=== PATIENT | male | born 1950 | race Caucasian/White ===

== ENCOUNTER 2017-09-04 13:13 | Emergency (ER) | payer OTHER ==
[~2017-09-04] VITALS: Ht 175.3 cm; Wt 64.4 kg
[~2017-09-04 13:13] MED LIST: AMLODIPINE BES2.5 M1 PO; ATORVASTATIN CA40 M1 PO; ATORVASTATIN CA40 MG PO; BUFFERIN LOW DO81 MG PO; FINASTERIDE5 M1 PO; GLUCOPHAGE500 MG PO; IRBESARTAN300 M1 PO; JANUVIA100 M1 PO; LORAZEPAM1 M1 PO; OMEPRAZOLE20 M2 PO; PRINIVIL 5MG5 MG PO; RAPAFLO8 M1 PO; ULTRAM(MONOGRAP50 MG PO; ZOFRAN ODT4 M1 SL
--- NOTE | 2017-09-04 15:03 | ED AMS/SEIZURE/WEAK/DIZZY ---
History of Present Illness General Chief Complaint: General Adult Stated Complaint: DIZZINESS SINCE A FEW DAYS BS 289 Source: patient Exam Limitations: no limitations Vital Signs & Intake/Output Vital Signs & Intake/Output Vital Signs Date Time Temp Pulse Resp B/P B/P Pulse O2 O2 Flow FiO2 Mean Ox Delivery Rate 09/04 1622 62 18 115/77 97 Room Air 09/04 1349 97.0 82 18 112/58 98 Room Air Room Air Allergies Coded Allergies: metformin (Intermediate, DIARRHEA 09/04/17) Reconcile Medications Amlodipine Besylate 5 MG TABLET 1 TAB PO DAILY HEART (Reported) Aspirin (Aspirin*) 81 MG TAB.CHEW 1 TAB PO DAILY HEART HEALTH (Reported) Atorvastatin Calcium 40 MG TABLET 1 TAB PO DAILY CHOLESTEROL (Reported) Bupropion HCl (Bupropion XL) 150 MG TAB.ER.24H 1 TAB PO QAM MENTAL HEALTH ( Reported) Finasteride 5 MG TABLET 1 TAB PO DAILY PROSTATE (Reported) Irbesartan 300 MG TABLET 1 TAB PO DAILY BP (Reported) Omeprazole 20 MG CAPSULE.DR 1 CAP PO DAILY GI (Reported) Silodosin (Rapaflo) 8 MG CAPSULE 1 CAP PO DAILY PROSTATE (Reported) Sitagliptin Phosphate (Januvia) 100 MG TABLET 1 TAB PO DAILY DM (Reported) Triage Note: PT TO ED WITH WITH C/O DIZZINESS, LIGHTHEADED, TIRED FOR OVER A WEEK. PT ALSO STATING "MY BLOOD SUGARS ARE USUSALLY 125, AND IT HAS BEEN IN THE 200'S ALL WEEK, THIS MORNING IT WAS 297, AND IT'S NEVER BEEN THIS HIGH". PT HAS RECENTLY LOST 19 POUNDS, HAS BEEN WORKING OUT WALKING DAILY. NON-SMOKER, HX OF ETOH, CLEAN FOR MONTHS AND DOING WELL ON WELLBUTRIN PER FAMILY. HX DIABETIC, HTN, CHOLESTEROL. PT IS AWAKE,ALERT,ORIENTED, DENIES CHEST PAIN, "FEELS LIKE SHOULDERS ARE TIGHT AT TIMES". Triage Nurses Notes Reviewed? yes HPI: Patient presents for evaluation of worsening dizziness over the past 2 weeks. Patient states that today he felt extremely dizzy and off balance while taking his usual walk. He states in addition his fingerstick blood glucose level has been running in the upper 200s. He spoke with his primary care physician today and was told to go to the emergency department. In addition to the above he has had urinary frequency fatigue and episodes of chest pain when he "exerciseS". Past History Travel History Traveled to [place] past 21 day No Medical History Any Pertinent Medical History? see below for history Neurological: dizziness EENT: otitis media Cardiovascular: hypertension, HIGH CHOLESTEROL Respiratory: NONE Gastrointestinal: NONE Renal: NONE Musculoskeletal: NONE Psychiatric: alcohol dependence Endocrine: diabetes Blood Disorders: NONE Cancer(s): NONE PRECIPITATE WASHER/Reproductive: NONE History of MRSA: No History of VRE: No History of CDIFF: No Surgical History Surgical History: N Psychosocial History Who do you live with Spouse Services at Home None What is your primary language Argentine Tobacco Use: Never used ETOH Use: alcoholic, CLEAN MONTHS Illicit Drug Use: denies illicit drug use Family History Family History, If Any: FATHER CVA SISTER FH: diabetes mellitus BROTHER FH: diabetes mellitus Hx Contributory? No Review of Systems Review of Systems Constitutional: Reports: see HPI. EENTM: Reports: no symptoms. Respiratory: Reports: no symptoms. Cardiovascular: Reports: no symptoms. GI: Reports: no symptoms. Genitourinary: Reports: see HPI. Musculoskeletal: Reports: no symptoms. Skin: Reports: no symptoms. Neurological/Psychological: Reports: no symptoms. Hematologic/Endocrine: Reports: no symptoms. Immunologic/Allergic: Reports: no symptoms. All Other Systems: Reviewed and Negative Physical Exam Physical Exam General Appearance: SEE BELOW Comments: Gen.: Well-nourished, well-developed, no acute respiratory distress. Head: Normocephalic, atraumatic. Eyes: Normal inspection bilaterally Ears: Normal inspection bilaterally Nose: Normal inspection Throat/mouth : Moist mucosa Neck: Supple, full range of motion, no goiter Heart: Regular rate and rhythm, no murmurs rubs or gallops Lungs: Clear to auscultation bilaterally with normal air entry Chest: Nontender Back: Normal range of motion Abdomen: Soft, nontender, nondistended, normal bowel sounds Extremities: Normal range of motion grossly, equal radial pulses, no cyanosis clubbing or edema Neurologic: Cranial nerves grossly intact, speech is clear Skin: warm and dry Psychiatric: Calm, cooperative, no apparent delusions or hallucinations Core Measures ACS in differential dx? No CVA/TIA Diagnosis No Sepsis Present: No Sepsis Focused Exam Completed? No Progress Differential Diagnosis: anemia, dehydration, electrolyte imbalance, hypoglycemia , hypoxia, DKA Plan of Care: Orders Procedure Date/time Status TROPONIN LEVEL 09/04 1502 Complete SERUM OSMOLALITY 09/04 1502 Complete LIPASE 09/04 1502 Complete COMPREHENSIVE METABOLIC PANEL 09/04 1502 Complete CBC WITHOUT DIFFERENTIAL 09/04 1502 Complete ACETONE 09/04 1502 Complete EKG 09/04 1316 Active Laboratory Tests 09/04/17 1503: Anion Gap 13, Estimated GFR 43 L, BUN/Creatinine Ratio 11.9, Glucose 241 H, Serum Osmolality 295, Calcium 9.9, Total Bilirubin 1.0, AST 46, ALT 66, Alkaline Phosphatase 67, Troponin I < 0.01, Total Protein 7.2, Albumin 4.1, Globulin 3.1, Albumin/Globulin Ratio 1.3, Lipase 85, CBC w Diff NO MAN DIFF REQ, RBC 4.75, MCV 94.9 H, MCH 32.6 H, MCHC 34.4, RDW 12.1, MPV 12.8 H, Gran % 79.3 H, Lymphocytes % 13.6 L, Monocytes % 6.4, Eosinophils % 0.5, Basophils % 0.2, Absolute Granulocytes 7.7 H, Absolute Lymphocytes 1.3, Absolute Monocytes 0.6, Absolute Eosinophils 0.1, Absolute Basophils 0, Acetone Level NEGATIVE Diagnostic Imaging: Discussed w/RAD: Radiology Read. CXR Impression: PATIENT: SALVADOR COFFMAN PRESENT AGE: 67 PATIENT ACCOUNT NO: [id number] : 51 LOCATION: [facility] ORDERING PHYSICIAN: Qasim Carroll MD SERVICE DATE: 09/04/17 EXAM TYPE: RAD - XRY-PORTABLE CHEST XRAY EXAMINATION: XR PORTABLE CHEST CLINICAL INFORMATION: Chest pain. Fatigue. COMPARISON: Chest x-ray 11/26/2016 TECHNIQUE: Portable frontal view of the chest was obtained. 3:11 PM FINDINGS: No significant abnormality is noted involving the heart, lungs, mediastinum, bony thorax or soft tissues. IMPRESSION : No acute abnormality of the chest. DICTATED BY: David Rodríguez MD DATE/TIME DICTATED:09/04/171558 MULTIMEDIA ENGINEER:JOSEPH DATE/TIME TRANSCRIBED:1558 CONFIDENTIAL, DO NOT COPY WITHOUT APPROPRIATE AUTHORIZATION. < Electronically signed in Other Vendor System> SIGNED BY: David Rodríguez MD [id number] Initial ED EKG: NSR, rate (62), no ST T wave changes Prior EKG: unchanged Comments: 09/04/2017 5:30:16 PM I have updated Salvador on his test results. Although I recommended additional fluids here in the emergency department he would prefer to go home and "force fluids". He does look clinically better and admits that he has feel better as well. I feel his poorly controlled diabetes lead to diuresis and subsequent dehydration with lightheadedness and dizziness due to fluctuating blood pressure. Departure Departure Disposition: HOME OR SELF CARE Condition: Stable Clinical Impression Primary Impression: Dehydration Secondary Impressions: Diabetes Qualifiers: Diabetes mellitus type: type 2 Diabetes mellitus manager intermediate insulin use: without jail use Diabetes mellitus complication status: without complication Qualified Code: E11.9 - Type 2 diabetes mellitus without complications Referrals: Antonette LIU,Tosha Encinas (PCP/Family) Additional Instructions: When you return home, drink lots of fluids as discussed. Record your sugar levels before each meal and at bedtime. Follow-up with your primary care physician or mail handlers supervisor this week for reevaluation. Return if any concerns or sudden worsening. Please note that there might be incidental findings in your evaluation that are unrelated to the current emergency department visit. Please notify your primary care doctor about this emergency department visit in order to obtain and review all of the testing performed so that these incidental findings can be monitored as needed. If you had an x-ray performed, please understand that some fractures or other findings may not be seen on the initial set of x-rays. If your symptoms persist you might need a repeat set of x-rays to check for such a fracture. If you had a laceration evaluated, please understand that foreign bodies such as glass or wood may not be visible to the naked eye or on plain x-rays. If the wound becomes red, swollen, increasingly more painful or if there is any drainage from the wound, please have it reevaluated by a physician for the possibility of a retained foreign body. If you're unable to follow up as outlined in the discharge instructions please return to the emergency department. Thank you for choosing the [facility] Emergency Department for your care. It was a pleasure to serve you today. Qasim Carroll M.D. [facility] Departure Forms: Customer Survey General Discharge Information
[2017-09-04] MEDS ORDERED: BUPROPION XL150 MG PO (15:05)
[2017-09-04] MEDS ORDERED: ASPIRIN81 M4 PO (15:06)
[2017-09-04] MEDS ORDERED: AMLODIPINE BESYL5 M1 PO (15:06)
[2017-09-04 15:15] LABS: ABSOLUTE BASOPHIL COUNT 0 /CUMM (0.0-0.2); ABSOLUTE EOSINOPHIL COUNT 0.1 /CUMM (0.0-0.7); ABSOLUTE GRANULOCYTE CT 7.7 /CUMM (1.4-6.5); ABSOLUTE LYMPH COUNT 1.3 /CUMM (1.2-3.4); ABSOLUTE MONOCYTE COUNT 0.6 /CUMM (0.10-0.60); BASOPHIL % 0.2 % (0.0-2.0); EOSINOPHIL % 0.5 % (0-5); GRANULOCYTE % 79.3 % (42.2-75.2); HEMATOCRIT 45.1 % (42-52); MEAN CORPUSCULAR HGB 32.6 PG (27.0-31.0); MEAN CORPUSCULAR HGB CONC 34.4 G/DL (33.0-37.0); MEAN CORPUSCULAR VOLUME 94.9 FL (80.0-94.0); MEAN PLATELET VOLUME 12.8 FL (7.4-10.4); PLATELET COUNT 181 /CUMM (130-400); RBC DISTRIBUTION WIDTH 12.1 % (11.5-14.5); RED BLOOD CELL CT 4.75 /CUMM (4.70-6.10); WHITE BLOOD CELL COUNT 9.7 /CUMM (4.8-10.8)
--- NOTE | 2017-09-04 16:03 | RADIOLOGY REPORT ---
EXAMINATION: XR PORTABLE CHEST CLINICAL INFORMATION: Chest pain. Fatigue. COMPARISON: Chest x-ray 11/26/2016 TECHNIQUE: Portable frontal view of the chest was obtained. 3:11 PM FINDINGS: No significant abnormality is noted involving the heart, lungs, mediastinum, bony thorax or soft tissues. IMPRESSION: No acute abnormality of the chest.
[2017-09-04 16:22] VITALS: BP 115/77
== END 2017-09-04 17:41 ==
LOC: ERH 13:13
PROVIDERS: Emergency Medicine
DX: E86.0 Dehydration (principal); E11.9 Type 2 diabetes mellitus without complications
CPT/HCPCS: 71045; 93005; 93010